=== PATIENT | male | born 2000 | race Two or more races ===

== ENCOUNTER 2024-09-25 15:20 | Emergency (ER) | payer BC ==
[~2024-09-25] VITALS: Ht 165.1 cm; Wt 56.7 kg
[2024-09-25] MEDS ORDERED: FAMOTIDINE/PF 20 MG in 0.9 % SODIUM CHLORIDE 8 ML IV PUSH STA (16:22)
[2024-09-25] MEDS ORDERED: ONDANSETRON HCL 2 MG/ML VIAL IV ONE (16:30)
[2024-09-25] MEDS ORDERED: 0.9 % SODIUM CHLORIDE 1,000 ML IV SCH (16:30)
[2024-09-25 16:48] LABS: BASO % 0.2 % (0.1-1.2); HEMATOCRIT 45.7 % (40.1-51.0); HEMOGLOBIN 16.7 g/dL (13.7-17.5); LYMPH # 0.24 (1.18-3.74); LYMPH % 2.2 % (19.3-53.1); MEAN CORPUSCULAR HEMOGLOBIN 29.8 pg (25.6-32.2); MONO # 0.32 (0.24-0.82); NEUT # 10.23 (1.56-6.13); NEUT % 94.3 % (34.0-71.1); PLATELET COUNT 204 K/uL (163-369); RED CELL DISTRIBUTION WIDTH 11.9 % (11.6-14.4)
[2024-09-25] MEDS ORDERED: FAMOTIDINE/PF 20 MG/2 ML VIAL ONE (16:55)
[2024-09-25] MEDS ORDERED: ONDANSETRON HCL 2 MG/ML VIAL ONE (16:55)
[2024-09-25 17:23] LABS: ALBUMIN 4.6 gm/dL (3.4-5.0); BILIRUBIN TOTAL 1.36 mg/dL (0.3-1.2); BILIRUBIN,CONJUGATED 0.29 mg/dL (0.0-0.2); BILIRUBIN,UNCONJUGATED 1.07 mg/dL (0.0-0.6); CALCIUM 9.4 mg/dL (8.5-10.1); CREATININE SERUM 1.11 mg/dL (0.70-1.30); GFR 81.39; GLOBULINA 3.6 G/DL (2.4-3.5); POTASSIUM 4.41 mEq/L (3.5-5.1); TOTAL PROTEIN 8.2 gm/dL (6.4-8.2)
[2024-09-25 17:30] LABS: COVID-19 AG NEGATIVE (NEGATIVE); INFLUENZA A AG NEGATIVE (NEGATIVE)
[2024-09-25] MEDS ORDERED: PEPCID AC20 MG PO (18:08)
[2024-09-25] MEDS ORDERED: ONDANSETRON ODT8 MG PO (18:08)
== END 2024-09-25 18:34 | disposition home or self-care (01) ==
LOC: ER 15:52
PROVIDERS: General Practice
DX: K29.70 Gastritis, unspecified, without bleeding (principal); R11.2 Nausea with vomiting, unspecified; Z20.822 Contact with and (suspected) exposure to COVID-19